=== PATIENT | male | born 1995 | race African-American/Black ===

== ENCOUNTER 2022-09-28 10:46 | Emergency (ER) | payer OTHER ==
[~2022-09-28] VITALS: Ht 175.3 cm; Wt 86.0 kg
[2022-09-28 10:50] VITALS: O2SAT 97
[2022-09-28] MEDS ORDERED: ALBUTEROL (0.083%) 2.5MG/3ML NEB HHN ONE (11:15)
[2022-09-28 11:43] LABS: BASOPHILS % 0.8 % (0.0-2.0); EOSINOPHILS % 4.8 % (0.0-5.0); HEMATOCRIT. 44.7 % (42.0-52.0); LYMPHOCYTES % 29.6 % (20.0-50.0); MEAN CORPUSCULAR HEMOGLOBIN 29.2 pg (28.0-32.0); MEAN CORPUSCULAR VOLUME 86.9 fL (80.0-94.0); MONOCYTES % 6.8 % (2.0-8.0); PLATELET 150 x1000/uL (130-400); RED BLOOD CELL COUNT 5.15 mill/uL (4.7-6.1); RED CELL DISTRIBUTION WIDTH 13.6 % (11.6-14.6)
[2022-09-28 11:53] LABS: CHLORIDE 105 mEq/L (98-107)
[2022-09-28 12:54] VITALS: BP 130/82; PULSE 59; RESP 14; TEMP 98.5
== END 2022-09-28 12:55 | disposition home or self-care (01) ==
LOC: ER 10:46
DX: R07.89 Other chest pain (principal); F12.10 Cannabis abuse, uncomplicated
CPT/HCPCS: 80053; 85025; 84484; 36415; 71045; 93005; 99285; Z7610 ×3